=== PATIENT | male | born 1990 | race Caucasian/White ===

== ENCOUNTER 2016-08-14 12:36 | Emergency (ER) | payer MEDICAID, OTHER ==
[~2016-08-14] VITALS: Wt 51.0 kg
[~2016-08-14 12:36] MED LIST: ACET1TAB40 PO; AMO500 PO
[2016-08-14] MEDS ORDERED: AZIT250T94 PO (13:17)
[2016-08-14] MEDS ORDERED: ONDA4TAB14 PO (13:17)
--- NOTE | 2016-08-14 13:53 | ERD ---
ER Documentation Chief Complaint Date/Time DATE: 08/14/16 TIME: 13:50 Chief Complaint fever/bodyache/nausea/vomiting x2 episodes started in am no meds taken HPI This patient is a 26-year-old male presenting to the emergency department with sore throat, fevers, body aches, and spitting up a small amount of blood which began this morning. Symptoms are intermittent. Symptoms are moderate. The patient is taken no medication for relief of symptoms. Last vomiting episode was when the patient awoke this morning. The patient denies diarrhea, abdominal pain, dizziness, shortness of breath, chest pain, or other symptoms. ROS All systems reviewed and are negative except as per history of present illness. Medications Home Meds Active Scripts Ondansetron (Ondansetron Odt) 4 Mg Tab.rapdis, 4 MG PO Q6H Y for NAUSEA AND/OR VOMITING, #10 TAB Prov:ADRIEN PENA PA-C 08/14/16 Azithromycin* (Zithromax*) 250 Mg Tablet, 250 MG PO .ZPACK DIRECTED, #6 TAB TAKE 500 MG (2 TABS) THE FIRST DAY THEN 250 MG (1 TAB) DAYS 2-5 Prov:ADRIEN PENA PA-C 08/14/16 Acetaminophen-Codeine* (Acetaminophen-Cod #3*) 300-30 Mg Tab, 1 TAB PO Q4H Y for PAIN, #10 TAB Prov:ANJEL JUSTICE PA-C 07/20/15 Amoxicillin* (Amoxicillin*) 500 Mg Cap, 500 MG PO TID for 7 Days, CAP Prov:ANJEL JUSTICE PA-C 07/20/15 Allergies Allergies: Coded Allergies: No Known Allergy (Unverified , 07/20/15) PMhx/Soc Hx Alcohol Use: No Hx Substance Use: No Hx Tobacco Use: No Physical Exam Vitals Vital Signs Date Time Temp Pulse Resp B/P Pulse Ox O2 Delivery O2 Flow Rate FiO2 08/14/16 12:38 100.0 104 18 113/57 99 Physical Exam Const: Well-appearing, nontoxic male resting in no acute distress. Head: Atraumatic Eyes: Normal Conjunctiva ENT: Normal External Ears, Nose and Mouth. Neck: Full range of motion..~ No meningismus. Resp: Clear to auscultation bilaterally Cardio: Regular rate and rhythm, no murmurs Abd: Soft, non tender, non distended. Normal bowel sounds. No McBurney's point tenderness. Skin: No petechiae or rashes Back: No midline or flank tenderness Ext: No cyanosis, or edema Neur: Awake and alert Psych: Normal Mood and Affect Procedures/MDM 27-year-old male presents to the emergency department secondary to complaints of vomiting, sore throat, and fevers. On physical examination the patient's temperature is slightly elevated at 100.0F. The patient did not require antipyretics in the department. Examination of the throat is concerning for tonsillitis. The patient is stable for outpatient management with a prescription for Zithromax and Zofran. I have low suspicion for acute abdomen, peritonsillar abscess, retropharyngeal abscess, septicemia, or other emergent conditions. The patient agrees with the discharge plan of diagnosis. Close follow-up with the primary care physician advised. ER return precautions discussed. Departure Diagnosis: Primary Impression: Tonsillitis Additional Impression: Nausea and vomiting Vomiting type: unspecified Vomiting Intractability: non-intractable Qualified Code: R11.2 - Non-intractable vomiting with nausea, unspecified vomiting type Condition: Fair Patient Instructions: Nausea and Vomiting-Adult, Pharyngitis, Strep (Presumed) Referrals: [facility] YOU HAVE RECEIVED A MEDICAL SCREENING EXAM AND THE RESULTS INDICATE THAT YOU DO NOT HAVE A CONDITION THAT REQUIRES URGENT TREATMENT IN THE EMERGENCY DEPARTMENT. FURTHER EVALUATION AND TREATMENT OF YOUR CONDITION CAN WAIT UNTIL YOU ARE SEEN IN YOUR DOCTORS OFFICE WITHIN THE NEXT 1-2 DAYS. IT IS YOUR RESPONSIBILITY TO MAKE AN APPOINTMENT FOR FOLOW-UP CARE. IF YOU HAVE A PRIMARY DOCTOR --you should call your primary doctor and schedule an appointment IF YOU DO NOT HAVE A PRIMARY DOCTOR YOU CAN CALL OUR PHYSICIAN REFERRAL HOTLINE AT IF YOU CAN NOT AFFORD TO SEE A PHYSICIAN YOU CAN CHOSE FROM THE FOLLOWING [facility] [address] [facility] [address] [facility] [address] [facility] [address] [facility] [address] [facility] [address] Additional Instructions: Follow up with your PCP within the next 1-3 days for a repeat evaluation and a possible referral to a specialist, if required. Return the the emergency department immediately if symptoms worsen or change. If you have any questions regarding medications, ask your pharmacist or us before you leave. If any adverse reactions, occur while taking your medications, discontinue the treatment and return to the emergency department immediately. If any new or worsening symptoms, uncontrolled fevers, or other unexplained symptoms occur, return to the emergency department immediately. Take your medications as directed, and complete the entire course of treatment. ADRIEN PENA PA-C Aug 14, 2016 13:53
[2016-08-14 14:27] VITALS: BP 113/57; PULSE 88; RESP 18; TEMP 98.9
[2016-08-15] MEDS ORDERED: ACET325T33 PO (01:25)
[2016-08-15] MEDS ORDERED: IBUP400T22 PO (01:25)
== END 2016-08-14 14:28 | disposition home or self-care (01) ==
LOC: FTE 12:36
DX: J03.90 Acute tonsillitis, unspecified (principal); R11.2 Nausea with vomiting, unspecified
CPT/HCPCS: 99284

== ENCOUNTER 2016-08-14 22:27 | Emergency (ER) | payer MEDICAID ==
[~2016-08-14] VITALS: Wt 51.0 kg
[~2016-08-14 22:27] MED LIST changes: +AZIT250T94 PO; +ONDA4TAB14 PO
[2016-08-15] MEDS ORDERED: ACETAMINOPHEN 500 MG TAB PO STA (00:12)
[2016-08-15] MEDS ORDERED: ACET325T33 PO (01:25)
[2016-08-15] MEDS ORDERED: IBUP400T22 PO (01:25)
--- NOTE | 2016-08-15 01:52 | ERD ---
ER Documentation Chief Complaint Date/Time DATE: 08/15/16 TIME: 01:44 Chief Complaint Fever HPI This is a 26 year old male presenting to ER for fever. Patient was here earlier today and was given medications for tonsillitis and nausea Patient states now he does not have sore throat after starting on antibiotic. Patient states earlier today he felt very warm and started sweating. Patient did not check his temperature at home. No cough, shortness of breath, difficulty breathing, abdominal pain, nausea, vomiting or diarrhea. Patient states he is only concerned about his tactile fever. ROS All systems reviewed and are negative except as per history of present illness. Medications Home Meds Active Scripts Ibuprofen* (Motrin*) 400 Mg Tab, 400 MG PO Q6, #15 TAB Prov:ANATOLIY TRACEY NP 08/15/16 Acetaminophen* (Tylenol*) 325 Mg Tablet, 2 TAB PO Q6 Y for PAIN AND OR ELEVATED TEMP, #20 TAB Prov:ANATOLIY TRACEY NP 08/15/16 Ondansetron (Ondansetron Odt) 4 Mg Tab.rapdis, 4 MG PO Q6H Y for NAUSEA AND/OR VOMITING, #10 TAB Prov:ADRIEN PENA PA-C 08/14/16 Azithromycin* (Zithromax*) 250 Mg Tablet, 250 MG PO .ZPACK DIRECTED, #6 TAB TAKE 500 MG (2 TABS) THE FIRST DAY THEN 250 MG (1 TAB) DAYS 2-5 Prov:ADRIEN PENA PA-C 08/14/16 Acetaminophen-Codeine* (Acetaminophen-Cod #3*) 300-30 Mg Tab, 1 TAB PO Q4H Y for PAIN, #10 TAB Prov:ANJEL JUSTICE PA-C 07/20/15 Amoxicillin* (Amoxicillin*) 500 Mg Cap, 500 MG PO TID for 7 Days, CAP Prov:ANJEL JUSTICE PA-C 07/20/15 Allergies Allergies: Coded Allergies: No Known Allergy (Unverified , 08/15/16) PMhx/Soc Medical and Surgical Hx: pt denies Medical Hx, pt denies Surgical Hx History of Surgery: No Anesthesia Reaction: No Hx Neurological Disorder: No Hx Respiratory Disorders: No Hx Cardiac Disorders: No Hx Psychiatric Problems: No Hx Miscellaneous Medical Probl: No Hx Alcohol Use: No Hx Substance Use: No Hx Tobacco Use: No Physical Exam Vitals Vital Signs Date Time Temp Pulse Resp B/P Pulse Ox O2 Delivery O2 Flow Rate FiO2 08/14/16 23:04 99.0 85 20 104/55 98 Physical Exam Const: no acute distress, alert Head: Atraumatic Eyes: Normal Conjunctiva ENT: Normal External Ears, Nose and Mouth. Neck: Full range of motion..~ No meningismus. Resp: Clear to auscultation bilaterally. no wheezing, rhonchi or crackles. no intercostal retractions, no stridor or labored breathing. Cardio: Regular rate and rhythm, no murmurs Abd: Soft, non tender, non distended. Normal bowel sounds Skin: No petechiae or rashes Back: No midline or flank tenderness Ext: No cyanosis, or edema Neur: Awake and alert Psych: Normal Mood and Affect Results 24 hrs Current Medications Medications (Trade) Dose Ordered Sig/Dheeraj Route PRN Reason Start Time Stop Time Status Last Admin Dose Admin Acetaminophen (Tylenol Tab) 500 mg ONCE STAT PO 08/15/16 00:12 08/15/16 00:14 DC 08/15/16 00:21 Procedures/MDM MDM: 26 year old male presents to ER for fever. Patient was here earlier today and diagnosed with tonsillitis. Patient started on antibiotic at home and states he feels better except for his fever. Patient is afebrile upon arrival to ER and is extremely well appearing. No s/s respiratory distress. Patient states he did not check his temperature at home but felt warm. Low suspicion for pneumonia, pleural effusion, pneumothorax, sepsis or acute MO. Differential diagnosis includes but not limited to URI, influenza, otitis media, otitis externa, asthma exacerbation, croup, bronchitis, bronchiolitis and costochondritis. Patient is appropriate for outpatient management and will be given prescription for ibuprofen and Tylenol. Instructed patient to follow-up with primary care provider in the next 2-3 days for reassessment and additional management. Return to ED for any high fever, chest pain, difficulty breathing, shortness breath, wheezing, vomiting, diarrhea, abdominal pain or any new or worsening symptoms. Patient verbalizes understanding. All questions answered at discharge. Departure Diagnosis: Primary Impression: Temperature elevated Condition: Stable Patient Instructions: Fever Control (Adult) Referrals: [facility] YOU HAVE RECEIVED A MEDICAL SCREENING EXAM AND THE RESULTS INDICATE THAT YOU DO NOT HAVE A CONDITION THAT REQUIRES URGENT TREATMENT IN THE EMERGENCY DEPARTMENT. FURTHER EVALUATION AND TREATMENT OF YOUR CONDITION CAN WAIT UNTIL YOU ARE SEEN IN YOUR DOCTORS OFFICE WITHIN THE NEXT 1-2 DAYS. IT IS YOUR RESPONSIBILITY TO MAKE AN APPOINTMENT FOR FOLOW-UP CARE. IF YOU HAVE A PRIMARY DOCTOR --you should call your primary doctor and schedule an appointment IF YOU DO NOT HAVE A PRIMARY DOCTOR YOU CAN CALL OUR PHYSICIAN REFERRAL HOTLINE AT IF YOU CAN NOT AFFORD TO SEE A PHYSICIAN YOU CAN CHOSE FROM THE FOLLOWING [facility] [address] [facility] [employer] [address] [facility] [address] [facility] [address] [facility] [address] [facility]. [facility] [address] [facility] [address] [facility] YOU HAVE RECEIVED A MEDICAL SCREENING EXAM AND THE RESULTS INDICATE THAT YOU DO NOT HAVE A CONDITION THAT REQUIRES URGENT TREATMENT IN THE EMERGENCY DEPARTMENT. FURTHER EVALUATION AND TREATMENT OF YOUR CONDITION CAN WAIT UNTIL YOU ARE SEEN IN YOUR DOCTORS OFFICE WITHIN THE NEXT 1-2 DAYS. IT IS YOUR RESPONSIBILITY TO MAKE AN APPOINTMENT FOR FOLOW-UP CARE. IF YOU HAVE A PRIMARY DOCTOR --you should call your primary doctor and schedule and appointment IF YOU DO NOT HAVE A PRIMARY DOCTOR YOU CAN CALL OUR PHYSICIAN REFERRAL HOTLINE AT . IF YOU CAN NOT AFFORD TO SEE A PHYSICIAN YOU CAN CHOSE FROM THE FOLLOWING [facility]: [facility] [address] [place] [address] [facility] [address] [place] [address] [facility] [address] [place] [address] Additional Instructions: Call your primary care doctor TOMORROW for an appointment during the next 2-3 days.See the doctor sooner or return here if your condition worsens before your appointment time. Return to ED for any high fever, chest pain, difficulty breathing, shortness breath, wheezing, vomiting, diarrhea, abdominal pain or any new or worsening symptoms. ANATOLIY TRACEY NP Aug 15, 2016 01:52
== END 2016-08-15 01:46 | disposition home or self-care (01) ==
LOC: FTE 22:27
DX: R50.9 Fever, unspecified (principal); R11.0 Nausea
CPT/HCPCS: 99283